=== PATIENT | male | born 1965 | race Caucasian/White ===

== ENCOUNTER → 2016-03-07 | Outpatient (REF) ==
[~2016-03-07] MED LIST: NAPRELAN500 MG PO; NORCO 325 MG-51 TAB PO
[2016-03-07 13:14] LABS: C-REACTIVE PROTEIN < 0.5 mg/dL (0.0-0.9)
[2016-03-07 13:41] LABS: THYROID STIMULATING HORMONE 0.853 uIU/mL (0.465-4.680)
== END ==
LOC: ZLAB.WCH 11:28
PROVIDERS: Medical Genetics Clinical Genetics (M.D.)
DX: Z01.89 Encounter for other specified special examinations (principal)

== ENCOUNTER → 2017-04-25 | Outpatient (REF) | LOC: ZLAB.WCH 18:06 | DX: Z01.89 Encounter for other specified special examinations (principal) | CPT/HCPCS: G0103 ==

== ENCOUNTER → 2017-07-03 | Outpatient (REF) | LOC: COL.CARD 08:56 | DX: Z01.818 Encounter for other preprocedural examination (principal) ==

== ENCOUNTER 2021-01-19 15:24 | Inpatient (IN) | payer SELFPAY ==
[~2021-01-19] VITALS: Ht 175.3 cm; Wt 90.4 kg
[2021-01-19 17:24] LABS: BASO # 0.1 K/mm3 (0.0-0.2); BASO % 0.5 % (0.0-2.0); EOS # 0.2 K/mm3 (0.0-0.7); EOS % 1.4 % (0-4.0); GRAN # 9.2 K/mm3 (1.4-6.5); GRAN % 86.3 % (42.2-75.2); HEMATOCRIT 40.8 % (42.0-52.0); HEMOGLOBIN 13.7 g/dl (13.5-18.0); LYMPH # 0.4 K/mm3 (1.2-3.4); MEAN CELL VOLUME 95 fl (80.0-100.0); MEAN CORPUSCULAR HEMOGLOBIN 32 pg (27.0-31.0); MEAN CORPUSCULAR HGB CONC 34 g/dl (33.0-37.0); MEAN PLATELET VOLUME 9.2 fl (7.4-10.4); MONO # 0.8 K/mm3 (0.1-0.6); MONO % 7.4 % (1.7-9.3); PLATELET COUNT 240 K/mm3 (130-400); RED BLOOD COUNT 4.28 M/mm3 (4.20-5.60); REDCELL DISTRIBUTION WIDTH-CV 13.2 % (11.5-14.5)
[2021-01-19 17:40] LABS: BILIRUBIN,TOTAL 0.3 mg/dL (0.2-1.2); C-REACTIVE PROTEIN 0.62 mg/dL (0.00-0.50); CALCIUM 8.5 mg/dL (8.4-10.2); CREATININE, serum 0.96 mg/dL (0.72-1.25); POTASSIUM 4.1 mmol/L (3.5-4.5); TOTAL PROTEIN 6.4 gm/dL (6.2-8.1)
[2021-01-19 18:33] LABS: COLLECTION METHOD CLEAN CATCH
[2021-01-19 18:39] LABS: MUCOUS Present (NOT PRESENT); PH 5 (5-8); SQUAMOUS EPITHELIAL 0-2 /hpf (0-10); URINE APPEARANCE Clear (CLEAR/HAZY); URINE BACTERIA None Seen (NONE SEEN); URINE BILIRUBIN Negative (NEGATIVE); URINE BLOOD Negative (NEGATIVE); URINE COLOR Yellow (YELLOW); URINE GLUCOSE Negative (NEGATIVE); URINE KETONE Trace (NEGATIVE); URINE LEUKOCYTE ESTERASE Negative (NEGATIVE); URINE NITRATE Negative (NEGATIVE); URINE PROTEIN(semi-quant) Negative (NEGATIVE); URINE RBC 0-2 /hpf (0-2); URINE UROBILINOGEN Negative (NEGATIVE)
[2021-01-19] MEDS ORDERED: INDOCIN50 MG PO (20:33)
[2021-01-19] MEDS ORDERED: HCTZ 25MG TAB25 MG PO (20:33)
[2021-01-19] MEDS ORDERED: PRINIVIL20 MG PO (20:34)
[2021-01-19] MEDS ORDERED: AZULFIDINE500 MG/TAB PO (20:34)
[2021-01-19] MEDS ORDERED: ZOCOR 10MG10 MG PO (20:35)
[2021-01-19] MEDS ORDERED: PLAQUENIL 200M200 MG PO (20:36)
[2021-01-20 08:50] VITALS: BP 129/66; PULSE 68; TEMP 98
--- NOTE | 2021-01-20 09:45 | NUR ---
Patient admitted from the Er. Reports from nurse Soni. Patient settled into room, chest tube to water seal. Called to clarify chest tube orders. He reports he will be in to see patient.
--- NOTE | 2021-01-20 12:20 | NUR ---
call from , clamped chest tube per orders at this time.
[2021-01-20 12:22] VITALS: BP 127/63; PULSE 75; TEMP 97.6
--- NOTE | 2021-01-20 12:41 | NUR ---
[employer] met with patient to discuss discharge planning. Patient lives in [place] with his , Gregoria and sees Dr. Mccord for primary care. Patient obtains medications from [facility] with no difficulties. Patient is showing up as self pay on 's census but patient reports he is covered under his 's employer. notified Adan, Financial Counselor. Patient has a CPAP but reports he has not been using it lately. Patient is independent with ADLS and plans to return home upon discharge. Patient does not have Advance Directives and is not interested in establishing DPOA at this time. Discharge Plan: Home
[2021-01-20] MEDS ORDERED: MOTRIN 600600 MG/TAB PO (13:58)
[2021-01-20] MEDS ORDERED: PERCOCET 325 MG1 TA2 PO (13:59)
[2021-01-20] MEDS ORDERED: LIDODERM 5% PATC1 EA TP (14:00)
--- NOTE | 2021-01-20 14:00 | NUR ---
Patient reports pain increased, one tab percocet per orders.
--- NOTE | 2021-01-20 15:01 | NUR ---
rounded. chest tube removed. Will monitor. plans for dc
[2021-01-20 15:24] VITALS: BP 118/61; PULSE 65; TEMP 98.2
--- NOTE | 2021-01-20 17:04 | NUR ---
notifed. Patient continues to do well. Reports he is ready to get home. Discharge education given to patient & his . already picked up prescriptions. We reviewed medication safety & last dose taken. We discussed taking medications to prevent constipation. Patient encouarged to use IS at home to prevent pneumonia. Patient family bringing him a recliner to rest in at home for comfort. Patient wheeled out with all belingigns. His taking him home. They deny questions or concerns.
== END 2021-01-20 17:10 | disposition home or self-care (01) | DRG 200 ==
LOC: COL.ER 15:24 → SURG 20:43
PROVIDERS: Family Medicine; ADMIT Surgery
PROC: 0W9B30Z Drainage of Left Pleural Cavity with Drainage Device, Percutaneous Approach (ICD-10-PCS; principal; 2021-01-19)
DX: S27.2XXA Traumatic hemopneumothorax, initial encounter (principal); S22.42XA Multiple fractures of ribs, left side, initial encounter for closed fracture; S60.511A Abrasion of right hand, initial encounter; S50.312A Abrasion of left elbow, initial encounter; M19.90 Unspecified osteoarthritis, unspecified site; I10 Essential (primary) hypertension; W11.XXXA Fall on and from ladder, initial encounter; Y93.89 Activity, other specified; Y92.89 Other specified places as the place of occurrence of the external cause; Z72.0 Tobacco use
CPT/HCPCS: A9284; J1170; J2270; J2405; J7120; Q9967